=== PATIENT | male | born 1975 | race African-American/Black ===

== ENCOUNTER 2018-12-04 03:24 | Emergency (ER) | payer SELFPAY ==
[~2018-12-04] VITALS: Ht 172.7 cm; Wt 73.2 kg
[2018-12-04 07:15] VITALS: BP 114/68
== END 2018-12-04 07:36 | disposition home or self-care (01) ==
LOC: EMS 03:27
DX: S62.330A Displaced fracture of neck of second metacarpal bone, right hand, initial encounter for closed fracture (principal); R41.82 Altered mental status, unspecified; F10.129 Alcohol abuse with intoxication, unspecified; F17.210 Nicotine dependence, cigarettes, uncomplicated; X58.XXXA Exposure to other specified factors, initial encounter; Y93.89 Activity, other specified; Y92.89 Other specified places as the place of occurrence of the external cause; Y99.8 Other external cause status
CPT/HCPCS: 99406